=== PATIENT | male | born 1995 | race African-American/Black ===

== ENCOUNTER 2024-05-09 03:59 | Emergency (ER) | payer SELFPAY ==
[~2024-05-09] VITALS: Ht 182.9 cm; Wt 78.0 kg
[2024-05-09 04:07] VITALS: BP 129/72; RESP 18; TEMP 98.2; O2SAT 100
[2024-05-09 04:12] VITALS: PULSE 95
== END 2024-05-09 04:33 | disposition left against medical advice (07) ==
LOC: ER 03:59
DX: R06.02 Shortness of breath (principal); Z53.21 Procedure and treatment not carried out due to patient leaving prior to being seen by health care provider